=== PATIENT | female | born 1985 | race American Indian/Alaskan Native ===

== ENCOUNTER 2017-01-28 16:22 | Emergency (ER) | payer MEDICAID ==
[2017-01-28 16:32] VITALS: BP 142/84
[2017-01-28] MEDS ORDERED: FLEXERIL PO ONE (19:36)
[2017-01-28] MEDS ORDERED: VOLTAREN DR PO ONE (19:37)
[2017-01-28] MEDS ORDERED: VOLTAREN PO ONE (21:00)
--- NOTE | 2017-01-28 21:12 | XRay Report ---
FINAL REPORT PROCEDURE: Left wrist. TECHNIQUE: Four views. HISTORY: Wrist pain. COMPARISON: No prior studies are available for comparison. FINDINGS: The bones appear intact without fracture or dislocation. The joint spaces appear normal. The soft tissues are unremarkable. IMPRESSION: Normal study.
--- NOTE | 2017-01-28 22:50 | Emergency Department Report ---
Entered by CECE CROWE, acting as scribe for KRISTINE LOPEZ PA. ED Upper Extremity Inj HPI - General Chief Complaint: Extremity Injury, Upper Stated Complaint: LT HAND PAIN Time Seen by Provider: 01/28/17 19:04 Source: patient Mode of arrival: Ambulatory Limitations: No Limitations - History of Present Illness Initial Comments: 31 y/o female with no significant PMHx presents to the ED c/o left wrist pain that began 3 months ago. Patients states the pain began after having an IV placed to wrist while giving . Rates pain a 5/10 in severity, which she describe as sharp in quality. Aggravated with movement, and alleviated with immobilization and bandage. Took OTC pain medication and applied Icy Hot with no relief. MD Complaint: Injury to:: left, wrist Onset/Timin -: month(s) Other Extremity Injury: Wrist: Left Other Injuries: none Handedness: right Place: other (hospital) Severity scale (0 -10): 10 Improves With: immobilization, other (wearing a bandage) Worsens With: movement of extremity Context: other (from IV placed while giving ) Associated Symptoms: denies other symptoms. denies: weakness, numbness, suspects foreign body, nausea/vomiting, heard/felt popping sensat Treatments Prior to Arrival: bandage - Related Data Previous Rx's Medication Instructions Recorded Last Taken Type Acetaminophen/Codeine 1 tab PO Q6H PRN #14 tab 08/10/14 Unknown Rx [Acetaminophen-Codeine #3 TAB] Dicyclomine [Bentyl] 10 mg PO QID #20 capsule 08/10/14 Unknown Rx Promethazine [Phenergan] 25 mg PO Q6H PRN #14 tablet 08/10/14 Unknown Rx Cyclobenzaprine [Flexeril] 10 mg PO QHS PRN #20 tablet 01/28/17 Unknown Rx Ibuprofen [Motrin] 800 mg PO Q8HR PRN #30 tablet 01/28/17 Unknown Rx Allergies Allergy/AdvReac Type Severity Reaction Status Date / Time No Known Allergies Allergy Verified 08/10/14 00:13 ED Review of Systems Comment: All other systems reviewed and negative Constitutional: no symptoms reported. denies: chills, diaphoresis, fever, weakness Respiratory: no symptoms reported. denies: cough, orthopnea, shortness of breath, wheezing Cardiovascular: denies: chest pain, palpitations Endocrine: no symptoms reported Gastrointestinal: denies: abdominal pain, nausea, vomiting Musculoskeletal: arthralgia (left wrist pain). denies: back pain, joint swelling, myalgia Skin: denies: rash, lesions Neurological: denies: headache, weakness, numbness, other (tingling) ED Past Medical Hx - Past Medical History Previous Medical History?: No - Surgical History Past Surgical History?: Yes Additional Surgical History: - Social History Smoking Status: Never Smoker Substance Use Type: None - Medications Home Medications: Home Medications Medication Instructions Recorded Confirmed Last Taken Type Acetaminophen/Codeine 1 tab PO Q6H PRN #14 tab 08/10/14 Unknown Rx [Acetaminophen-Codeine #3 TAB] Dicyclomine [Bentyl] 10 mg PO QID #20 capsule 08/10/14 Unknown Rx Promethazine [Phenergan] 25 mg PO Q6H PRN #14 tablet 08/10/14 Unknown Rx Cyclobenzaprine [Flexeril] 10 mg PO QHS PRN #20 tablet 01/28/17 Unknown Rx Ibuprofen [Motrin] 800 mg PO Q8HR PRN #30 tablet 01/28/17 Unknown Rx ED Physical Exam - General Limitations: No Limitations General appearance: alert, in no apparent distress - Head Head exam: Present: atraumatic, normocephalic - Eye Eye exam: Present: normal appearance, PERRL, EOMI Pupils: Present: normal accommodation - ENT ENT exam: Present: normal exam, mucous membranes moist - Neck Neck exam: Present: normal inspection, full ROM. Absent: tenderness, meningismus, lymphadenopathy - Respiratory Respiratory exam: Present: normal lung sounds bilaterally. Absent: respiratory distress, wheezes, rales, rhonchi, stridor - Cardiovascular Cardiovascular Exam: Present: regular rate, normal rhythm, normal heart sounds. Absent: systolic murmur, diastolic murmur, rubs, gallop - GI/Abdominal GI/Abdominal exam: Present: soft, normal bowel sounds - Expanded Upper Extremity Exam Left Shoulder Exam: Present: normal inspection, full ROM Upper Arm exam: Present: normal inspection, full ROM Elbow exam: Present: normal inspection, full ROM Forearm Wrist exam: Present: normal inspection, full ROM Hand Wrist exam: Present: full ROM (left wrist pain with rotation), tenderness ( posterior aspect of left wrist tenderness), other (negative phalen's test ). Absent: swelling, abrasion, laceration, ecchymosis, deformity, crepidus, dislocation, erythema, amputation Neuro motor exam: Present: wrist extension intact, thumb opposition intact, thumb IP flexion intact, thumb adduction intact, fingers 2-5 abduction intact Neurosensory exam: Present: 2-point discrimination, radial nerve intact, ulnar nerve intact, median nerve intact Vascular: Present: normal capillary refill, radial pulse (2+), brachial pulse (2 +), ulnar pulse (2+). Absent: vascular compromise, Pallo, pulse deficit radial art, pulse deficit ulnar art, pulse deficit brachial art ED Course Vital Signs 01/28/17 16:28 Temperature 98.1 F Pulse Rate 77 Respiratory 18 Rate Blood Pressure 142/84 O2 Sat by Pulse 100 Oximetry ED Medical Decision Making - Medical Decision Making 31-year-old female presents with left wrist pain for 3 months ED course: Patient will be given joint pain medication and X-rays will be taken of left wrist. X-ray of the wrist and hand normal. No acute fractures nor dislocation. Patient is not ill-appearing. Discussed the follow-up with PCP as referred. Patient sent home with a Velcro wrist splint. Discuss her symptoms return or worsen to return to the ED Patient states understanding and will follow instructions. Vital signs stable. Patient is in no acute distress. ED Disposition Clinical Impression: Arthralgia of wrist, right Wrist pain, chronic Qualifiers: Laterality: right Qualified Code(s): M25.531 - Pain in right wrist; G89.29 - Other chronic pain Disposition: - TO HOME OR SELFCARE Is pt being admited?: No Does the pt Need Aspirin: No Condition: Stable Instructions: Arthralgia (ED), Heat Pack Application (ED) Prescriptions: Cyclobenzaprine [Flexeril] 10 mg PO QHS PRN #20 tablet PRN Reason: Muscle Spasm Ibuprofen [Motrin] 800 mg PO Q8HR PRN #30 tablet PRN Reason: Pain Referrals: SELIN FAIRCHILD MD [Primary Care Provider] - 3-5 Days DANNY WHITE MD [Referring] - 3-5 Days [facility] [Outside] - 3-5 Days [facility] [Outside] - 3-5 Days [facility] [Outside] - 3-5 Days Forms: Accompanied Note, Work/School Release Form(ED) Time of Disposition: 21:34 This documentation as recorded by the AMRITA herman JASMINE,accurately reflects the service I personally performed and the decisions made by ,KRISTINE LOPEZ PA.
== END 2017-01-28 21:53 | disposition home or self-care (01) ==
LOC: ED 16:22
DX: G89.29 Other chronic pain (principal); M25.532 Pain in left wrist
CPT/HCPCS: 99283